=== PATIENT | female | born 1975 | race Caucasian/White ===

== ENCOUNTER 2016-07-20 09:40 | Emergency (ER) | payer OTHER ==
[~2016-07-20] VITALS: Ht 157.5 cm; Wt 81.8 kg
[~2016-07-20 09:40] MED LIST: CONCERTA18 MG PO; EFFEXOR-XR150 MG PO; NEURONTIN300 MG/CAP PO
[2016-07-20 09:42] VITALS: BP 124/83; PULSE 93; TEMP 98.3
[2016-07-20] MEDS ORDERED: NORCO 325 MG-51 TAB PO (10:47)
== END 2016-07-20 11:46 | disposition home or self-care (01) ==
LOC: COL.ER 09:40
DX: K64.5 Perianal venous thrombosis (principal)

== ENCOUNTER → 2016-09-24 | Outpatient (REF) ==
[~2016-09-24] MED LIST changes: +NORCO 325 MG-51 TAB PO
== END ==
LOC: WSOH 12:31
DX: Z02.1 Encounter for pre-employment examination (principal)

== ENCOUNTER → 2016-09-28 | Outpatient (REF) | END | disposition home or self-care (01) | LOC: WSPT 10:50 | DX: Z02.1 Encounter for pre-employment examination (principal) ==

== ENCOUNTER 2017-07-29 20:40 | Emergency (ER) | payer OTHER ==
[~2017-07-29] VITALS: Ht 154.9 cm; Wt 75.0 kg
[2017-07-29 20:50] VITALS: TEMP 97.6
[2017-07-29 21:40] LABS: BASO % 0.3 % (0.0-2.0); EOS # 0.3 (0.0-0.7); EOS % 3.3 % (0-4.0); GRAN # 4.5 (1.4-6.5); GRAN % 59.8 % (42.2-75.2); HEMATOCRIT 37.3 % (37.0-47.0); HEMOGLOBIN 12.3 g/dl (12.5-16.0); LYMPH # 2.3 (1.2-3.4); LYMPH % 30.6 % (20.0-51.0); MEAN CELL VOLUME 93 fl (80.0-100.0); MEAN CORPUSCULAR HEMOGLOBIN 31 pg (27.0-31.0); MEAN CORPUSCULAR HGB CONC 33 g/dl (33.0-37.0); MEAN PLATELET VOLUME 10.9 fl (7.4-10.4); MONO # 0.4 (0.1-0.6); MONO % 5.7 % (1.7-9.3); PLATELET COUNT 224 K/mm3 (130-400); RED BLOOD COUNT 4.01 M/mm3 (4.10-5.30); REDCELL DISTRIBUTION WIDTH-CV 12.9 % (11.5-14.5)
[2017-07-29 21:52] LABS: ALANINE AMINOTRANSFERASE 18 U/L (9-52); ALBUMIN 4.3 gm/dL (3.5-5.0); ALKALINE PHOSPHATASE 64 U/L (50-136); ANION GAP 8 mmol/L (7-16); AST,SGOT 13 U/L (15-37); BLOOD UREA NITROGEN 15 mg/dL (7-17); CALCIUM 9.3 mg/dL (8.4-10.2); CARBON DIOXIDE 26 mmol/L (22-30); CHLORIDE 104 mmol/L (98-107); CREATINE KINASE 65 U/L (30-135); CREATININE, serum 0.75 mg/dL (0.52-1.25); GLUCOSE 75 mg/dL (74-106); POTASSIUM 3.5 mmol/L (3.4-5.0); SODIUM 138 mmol/L (137-145); TOTAL PROTEIN 6.8 gm/dL (6.4-8.2)
[2017-07-29 21:53] LABS: C-REACTIVE PROTEIN < 0.5 mg/dL (0.0-0.9)
[2017-07-29 22:59] VITALS: BP 115/59; PULSE 72
== END 2017-07-29 23:00 | disposition home or self-care (01) ==
LOC: COL.ER 20:40
PROVIDERS: Emergency Medicine
DX: R53.83 Other fatigue (principal); Z98.84 Bariatric surgery status
CPT/HCPCS: J2765; J3010; J7030

== ENCOUNTER 2019-06-08 09:06 | Emergency (ER) | payer OTHER ==
[~2019-06-08] VITALS: Ht 154.9 cm; Wt 87.3 kg
[2019-06-08 09:24] VITALS: BP 122/76; TEMP 98.2
[2019-06-08] MEDS ORDERED: FLEXERIL 1010 MG/TAB PO (12:00)
[2019-06-08 12:10] VITALS: PULSE 75
== END 2019-06-08 12:10 | disposition home or self-care (01) ==
LOC: COL.ER 09:06
DX: S06.0X0A Concussion without loss of consciousness, initial encounter (principal); S16.1XXA Strain of muscle, fascia and tendon at neck level, initial encounter; R40.2412 Glasgow coma scale score 13-15, at arrival to emergency department; Z90.710 Acquired absence of both cervix and uterus; V89.2XXA Person injured in unspecified motor-vehicle accident, traffic, initial encounter; Y92.481 Parking lot as the place of occurrence of the external cause